=== PATIENT | male | born 1995 | race African-American/Black ===

== ENCOUNTER 2018-06-24 10:21 | Emergency (ER) | payer SELFPAY ==
--- NOTE | 2018-06-24 10:56 | RAD ---
PORTABLE AP CHEST X-RAY: 06/24/2018 HISTORY: Chest pain. COMPARISON: None available. FINDINGS: The cardiac silhouette and popliteal vein are within normal limits. The lungs are clear. The osseou s structures are intact. IMPRESSION: No acute cardiopulmonary process. POS: [facility]
== END 2018-06-24 11:15 | disposition home or self-care (01) ==
LOC: MADERS 10:21
DX: R07.2 Precordial pain (principal)
CPT/HCPCS: 71045; 93005